=== PATIENT | male | born 1990 | race Caucasian/White ===

== ENCOUNTER 2017-09-12 11:58 | Emergency (ER) | payer BC ==
[2017-09-12 12:30] VITALS: BP 145/82
[2017-09-12] MEDS ORDERED: Albuterol HFA INHALER* 8 gm MDI INH ONE (12:36)
--- NOTE | 2017-09-12 12:54 | UC ---
Respiratory Complaint HPI - HPI Summary HPI Summary: 26 yo male with cough/chest tightness x 1 week productive of green phelgm no cp or sob - History of Current Complaint Chief Complaint: UCRespiratory Stated Complaint: COUGH,CONGESTION Time Seen by Provider: 09/12/17 12:26 Hx Obtained From: Patient Onset/Duration: Gradual Onset, Lasting Weeks - 1 Severity Initially: Mild Severity Currently: Mild Pain Intensity: 2 Pain Scale Used: 0-10 Numeric Character: Cough: Productive Aggravating Factors: Exertion, Deep Breaths Alleviating Factors: Nothing Associated Signs And Symptoms: Positive: Wheezing - Allergies/Home Medications Allergies/Adverse Reactions: Allergies Allergy/AdvReac Type Severity Reaction Status Date / Time No Known Allergies Allergy Verified 09/12/17 12:25 Home Medications: Home Medications Dextromethorphan-Guaifenesin [Mucinex Dm Maximum Streng 60-1200 mg] 1 tab PO Q12H PRN 09/12/17 [History Confirmed 09/12/17] Fexofenadine (NF) [Regi 180 (NF)] 180 mg PO DAILY 09/12/17 [History Confirmed 09/12/17] Fluticasone NASAL SPRAY 50MCG* [Flonase NASAL SPRAY 50MCG*] 2 spray BOTH NARES DAILY 09/12/17 [History Confirmed 09/12/17] PMH/Surg Hx/FS Hx/Imm Hx Previously Healthy: Yes - Surgical History Surgical History: None - Family History Known Family History: Positive: Cardiac Disease, Hypertension, Diabetes - Social History Alcohol Use: Weekly Substance Use Type: Excessive Caffeine, Marijuana Substance Use Comment - Amount & Last Used: daily Smoking Status (MU): Former Smoker Type: Cigarettes Length of Time of Smoking/Using Tobacco: 1 PPD x 6 Years When Did the Patient Quit Smoking/Using Tobacco: 07/17/17 Household Exposure Type: Cigarettes - Immunization History Most Recent Influenza Vaccination: Not the 2017/2017 Season Review of Systems Constitutional: Negative Skin: Negative Eyes: Negative ENT: Negative Respiratory: Cough Cardiovascular: Negative Gastrointestinal: Negative Genitourinary: Negative Motor: Negative Neurovascular: Negative Musculoskeletal: Negative Neurological: Negative Psychological: Negative Is Patient Immunocompromised?: No All Other Systems Reviewed And Are Negative: Yes Physical Exam Triage Information Reviewed: Yes Appearance: Well-Appearing, No Pain Distress, Well-Nourished, Thin Vital Signs: Initial Vital Signs Temp 98.7 F 09/12/17 12:22 Pulse 94 09/12/17 12:22 Resp 16 09/12/17 12:22 BP 145/82 09/12/17 12:22 Pulse Ox 100 09/12/17 12:22 Vital Signs Reviewed: Yes ENT: Positive: Hearing grossly normal, Pharynx normal, Uvula midline. Negative : Nasal congestion, Nasal drainage, Tonsillar swelling, Tonsillar exudate, Trismus, Muffled voice, Dental tenderness, Sinus tenderness Neck: Positive: Supple, Nontender, No Lymphadenopathy Respiratory: Positive: No respiratory distress, No accessory muscle use, Wheezing - with forced expiration Cardiovascular: Positive: RRR, No Murmur. Negative: Tachycardia, Bradycardia Musculoskeletal: Positive: ROM Intact, No Edema Neurological: Positive: Alert Psychological Exam: Normal Skin Exam: Normal UC Diagnostic Evaluation - Laboratory O2 Sat by Pulse Oximetry: 100 - normal/not hypoxic Respiratory Course/Dx - Differential Dx/Diagnosis Provider Diagnoses: acute bronchitis with bronchospasm Discharge - Discharge Plan Condition: Stable Disposition: HOME Patient Education Materials: Acute Bronchitis (ED) Forms: *Work Release Referrals: [facility] [place] [facility] [Outside] (your BP is a little high and should be followed) Additional Instructions: use inhaler as directed recheck for worsening symptoms
== END 2017-09-12 12:59 | disposition home or self-care (01) ==
LOC: UCCORT 11:58
DX: J20.9 Acute bronchitis, unspecified (principal); Z87.891 Personal history of nicotine dependence
CPT/HCPCS: 99203; A9270-GY; G0463